=== PATIENT | male | born 1965 | race Caucasian/White ===

== ENCOUNTER → 2018-04-29 | Outpatient (CLI) | payer BC | END | disposition home or self-care (01) | LOC: RADMRIMAIN 06:04 | PROVIDERS: ATTEND Orthopaedic Surgery | DX: Z53.9 Procedure and treatment not carried out, unspecified reason (principal) ==

== ENCOUNTER 2020-04-12 03:40 | Emergency (ER) | payer BC ==
[2020-04-12 03:49] VITALS: TEMP 97.7
[2020-04-12] MEDS ORDERED: ONDANSETRON 4 MG/2 ML VIAL IVP STA (04:02)
[2020-04-12] MEDS ORDERED: MORPHINE SULFATE 4 MG/ML SYRINGE IV STA (04:02)
[2020-04-12] MEDS ORDERED: SODIUM CHLORIDE 0.9% 1,000 ML IV STA (04:02)
--- NOTE | 2020-04-12 04:12 | ED ---
Abdominal Pain HPI - General Chief Complaint: Abdominal Pain Stated Complaint: Abd pain Time Seen by Provider: 04/12/20 04:01 Source: patient Limitations: no limitations - History of Present Illness Initial Comments: Needs a 55-year-old male presents the ER today for evaluation of right upper quadrant abdominal pain. Patient reports he was in his usual state of health throughout the day yesterday he woke around midnight with right upper quadrant abdominal pain. He was hoping the pain would subside however persisted throughout the morning prevent him from sleeping which prompted him to ask his to bring him hospital for further evaluation. Patient reports in route to the hospital he became nauseated and had some dry heaving but no vomiting. He reports normal bowel movement yesterday. No change in bowel or bladder habits. No hematuria no history of kidney stones. No known gallbladder pathology. - Related Data Allergies Allergy/AdvReac Type Severity Reaction Status Date / Time No Known Allergies Allergy Verified 04/12/20 03:48 Review of Systems ROS Statement: Those systems with pertinent positive or pertinent negative responses have been documented in the HPI. ROS Other: All systems not noted in ROS Statement are negative. Past Medical History Past Medical History: Diabetes Mellitus, Hypertension, Myocardial Infarction ([place]) History of Any Multi-Drug Resistant Organisms: None Reported Past Surgical History: Coronary Bypass/CABG, Heart Catheterization With Stent, Tonsillectomy Additional Past Surgical History / Comment(s): triple bipass 2018, stents 2007 Past Psychological History: No Psychological Hx Reported Smoking Status: Never smoker Past Alcohol Use History: Occasional Past Drug Use History: None Reported General Exam - General Exam Comments Initial Comments: Physical Exam GENERAL: Patient is well-developed and well-nourished. Patient is nontoxic and well-hydrated and is in no distress. HENT: Normocephalic, Atraumatic. EYES: PERRL, EOMI PULMONARY: Unlabored respirations. CARDIOVASCULAR: RRR Warm and well perfused extremities ABDOMEN: Soft, non-peritoneal Mild tenderness to deep palpation in the right upper quadrant No flank tenderness SKIN: No rashes or bruising : Deferred NEUROLOGIC: Alert and oriented Normal speech Normal gait MUSCULOSKELETAL: Moving all extremities with no apparent injury PSYCHIATRIC: No SI/HI Limitations: no limitations Course Vital Signs 04/12/20 04/12/20 03:45 04:33 Temperature 97.7 F Pulse Rate 77 75 Respiratory 18 18 Rate Blood Pressure 165/95 149/96 O2 Sat by Pulse 99 98 Oximetry Medical Decision Making - Medical Decision Making Patient was seen and evaluated history is obtained from the patient and at bedside 55-year-old obese male with right upper quadrant tenderness nausea no vomiting Labs and imaging were obtained Labs are unremarkable there's no leukocytosis is no transaminitis no elevated bilirubin KUB x-ray no acute findings Results were discussed with the patient who reports complete resolution of his symptoms that is resting comfortably after single dose of morphine. I advised the patient the possibility of Kelvin call it, recommended dietary modifications. At this time patient's comfortable to plan for discharge home and outpatient follow-up with primary care or surgeon. - Lab Data Result diagrams: 04/12/20 04:09 04/12/20 04:09 Lab Results 04/12/20 04/12/20 04/12/20 Range/Units 04:09 04:09 04:31 WBC 10.5 (3.8-10.6) k/uL RBC 6.09 H (4.30-5.90) m/uL Hgb 17.3 (13.0-17.5) gm/dL Hct 53.0 (39.0-53.0) % MCV 87.0 (80.0-100.0) fL MCH 28.4 (25.0-35.0) pg MCHC 32.6 (31.0-37.0) g/dL RDW 14.3 (11.5-15.5) % Plt Count 249 (150-450) k/uL Neutrophils % Not Reportable Neutrophils % (Manual) 36 % Lymphocytes % Not Reportable Lymphocytes % (Manual) 45 % Monocytes % Not Reportable Monocytes % (Manual) 17 % Eosinophils % Not Reportable Eosinophils % (Manual) 2 % Basophils % Not Reportable Neutrophils # Not Reportable Neutrophils # (Manual) 3.78 (1.3-7.7) k/uL Lymphocytes # Not Reportable Lymphocytes # (Manual) 4.73 (1.0-4.8) k/uL Monocytes # Not Reportable Monocytes # (Manual) 1.79 H (0-1.0) k/uL Eosinophils # Not Reportable Eosinophils # (Manual) 0.21 (0-0.7) k/uL Basophils # Not Reportable Nucleated RBCs 0 (0-0) /100 WBC Manual Slide Review Performed Sodium 137 (137-145) mmol/L Potassium 4.1 (3.5-5.1) mmol/L Chloride 101 (98-107) mmol/L Carbon Dioxide 23 (22-30) mmol/L Anion Gap 13 mmol/L BUN 14 (9-20) mg/dL Creatinine 0.90 (0.66-1.25) mg/dL Est GFR (CKD-EPI)AfAm >90 (>60 ml/min/1.73 sqM) Est GFR (CKD-EPI)NonAf >90 (>60 ml/min/1.73 sqM) Glucose 149 H (74-99) mg/dL Calcium 9.5 (8.4-10.2) mg/dL Total Bilirubin 1.2 (0.2-1.3) mg/dL AST 29 (17-59) U/L ALT 25 (4-49) U/L Alkaline Phosphatase 97 (38-126) U/L Total Protein 7.6 (6.3-8.2) g/dL Albumin 4.8 (3.5-5.0) g/dL Lipase 179 (23-300) U/L Urine Color Yellow Urine Appearance Clear (Clear) Urine pH 5.5 (5.0-8.0) Ur Specific Linwood 1.032 (1.001-1.035) Urine Protein Negative (Negative) Urine Glucose (UA) 4+ H (Negative) Urine Ketones Negative (Negative) Urine Blood Negative (Negative) Urine Nitrite Negative (Negative) Urine Bilirubin Negative (Negative) Urine Urobilinogen <2.0 (<2.0) mg/dL Ur Leukocyte Esterase Negative (Negative) - EKG Data -: EKG Interpreted by In EKG shows normal: sinus rhythm EKG Comments: EKG was obtained due to patient's age and right-sided abdominal pain, EKG was obtained at 3:54 AM, rate is 68 rhythm is sinus tach normal axis, normal intervals, [place] 156, QRS 90, QTc is 448 there are no acute ST elevations or depressions no evidence of acute ischemia or infarction Disposition Clinical Impression: Biliary colic Disposition: HOME SELF-CARE Condition: Stable Instructions (If sedation given, give patient instructions): Biliary Colic (ED) Is patient prescribed a controlled substance at d/c from ED?: No Referrals: Lianne Sterling III, MD [Primary Care Provider] - 1-2 days Sierra Morales MD [STAFF PHYSICIAN] - 1-2 days
[2020-04-12 04:19] LABS: HGB 17.3 gm/dL (13.0-17.5); MCH 28.4 pg (25.0-35.0); MCHC 32.6 g/dL (31.0-37.0); Mean Platelet Volume 7.4; Platelet Count 249 k/uL (150-450); RBC 6.09 m/uL (4.30-5.90); RDW 14.3 % (11.5-15.5); WBC 10.5 k/uL (3.8-10.6)
[2020-04-12 04:33] LABS: ALT 25 U/L (4-49); AST 29 U/L (17-59); African American GFR (CKD) >90 (>60 ml/min/1.73 sqM); Albumin 4.8 g/dL (3.5-5.0); Alkaline Phosphatase 97 U/L (38-126); Anion Gap 13 mmol/L; Blood Urea Nitrogen 14 mg/dL (9-20); Calcium 9.5 mg/dL (8.4-10.2); Carbon Dioxide 23 mmol/L (22-30); Chloride 101 mmol/L (98-107); Glucose 149 mg/dL (74-99); Lipase 179 U/L (23-300); Non-African American GFR(CKD) >90 (>60 ml/min/1.73 sqM); Potassium 4.1 mmol/L (3.5-5.1); Sodium 137 mmol/L (137-145); Total Bilirubin 1.2 mg/dL (0.2-1.3); Total Protein 7.6 g/dL (6.3-8.2)
[2020-04-12 04:41] LABS: Appearance,Urine Clear (Clear); Bilirubin,Urine Negative (Negative); Blood,Urine Negative (Negative); Color,Urine Yellow; Glucose,Urine (UA) 4+ (Negative); Ketones,Urine Negative (Negative); Leukocyte Esterase,Urine Negative (Negative); Nitrite,Urine Negative (Negative); PH, Urine 5.5 (5.0-8.0); Protein,Urine Negative (Negative); Specific Gravity,Urine 1.032 (1.001-1.035); Urobilinogen,Urine <2.0 mg/dL (<2.0)
[2020-04-12 04:45] LABS: Eosinophils # (M) 0.21 k/uL (0-0.7); Lymphocytes # (M) 4.73 k/uL (1.0-4.8); Monocytes # (M) 1.79 k/uL (0-1.0); Neutrophils # (M) 3.78 k/uL (1.3-7.7); Neutrophils % (M) 36 %; Nucleated Red Blood Cells 0 /100 WBC (0-0); Total Cells Counted 100
--- NOTE | 2020-04-12 05:09 | XR ---
EXAMINATION TYPE: XR KUB DATE OF EXAM: 04/12/2020 COMPARISON: NONE HISTORY: Abdominal pain TECHNIQUE: 2 views FINDINGS: 2 upright views were obtained. Bowel gas pattern is normal. There is no sign of intestinal obstruction or pneumoperitoneum. Fecal pattern is normal. There are chest leads. There are no patholo gic calcifications over the kidneys. Lung bases are clear. There is no evidence of a mass. IMPRESSION: Nonacute abdomen.
[2020-04-12 06:40] VITALS: BP 118/68; PULSE 74; RESP 17
== END 2020-04-12 06:39 | disposition home or self-care (01) ==
LOC: EC 03:40
DX: K80.50 Calculus of bile duct without cholangitis or cholecystitis without obstruction (principal); R10.11 Right upper quadrant pain; I25.2 Old myocardial infarction; Z95.1 Presence of aortocoronary bypass graft; Z95.5 Presence of coronary angioplasty implant and graft
CPT/HCPCS: 36415; 80053; 83690; 85025; 81003; 74018; 99284; 96374; 96375; 96361 ×2; J2270; J2405

== ENCOUNTER 2020-05-24 03:47 | Emergency (ER) | payer BC ==
[2020-05-24 03:54] VITALS: TEMP 97.4
[2020-05-24] MEDS ORDERED: KETOROLAC 15 MG/ML 1 ML VIAL IVP STA (04:01)
[2020-05-24] MEDS ORDERED: SODIUM CHLORIDE 0.9% 1,000 ML IV STA ×2 (04:01)
[2020-05-24] MEDS ORDERED: MORPHINE SULFATE 4 MG/ML SYRINGE IV STA (04:01)
--- NOTE | 2020-05-24 04:04 | ED ---
Abdominal Pain HPI - General Chief Complaint: Abdominal Pain Stated Complaint: abd pain Time Seen by Provider: 05/24/20 03:50 Source: patient, family, RN notes reviewed, old records reviewed Mode of arrival: ambulatory Limitations: no limitations - History of Present Illness Initial Comments: This is a 55-year-old male DF for evaluation patient with his history of gallbladder has a pending gallbladder issue. Patient is scheduled for ultrasound today. He states pain woke him up from sleep he has mild nausea no vomiting. His been persistent since started. No fevers no cough or congestion no diarrhea. No for similar complaints. Patient has some gallbladder issues going on a month month and a half MD Complaint: abdominal pain, other (RUQ abd pain) -: week(s) Location: RUQ Radiation: RUQ Migration to: no migration Severity: moderate Severity scale (1-10): 6 Quality: stabbing Consistency: intermittent Improves With: nothing Worsens With: eating Associated Symptoms: nausea - Related Data Allergies Allergy/AdvReac Type Severity Reaction Status Date / Time No Known Allergies Allergy Verified 05/24/20 03:55 Review of Systems ROS Statement: Those systems with pertinent positive or pertinent negative responses have been documented in the HPI. ROS Other: All systems not noted in ROS Statement are negative. Past Medical History Past Medical History: Diabetes Mellitus, Hypertension, Myocardial Infarction ([place]) Additional Past Medical History / Comment(s): gallstones History of Any Multi-Drug Resistant Organisms: None Reported Past Surgical History: Coronary Bypass/CABG, Heart Catheterization With Stent, Tonsillectomy Additional Past Surgical History / Comment(s): triple bipass 2018, stents 2007 Past Psychological History: No Psychological Hx Reported Smoking Status: Never smoker Past Alcohol Use History: Occasional Past Drug Use History: None Reported General Exam Limitations: no limitations General appearance: alert, in no apparent distress Head exam: Present: atraumatic, normocephalic, normal inspection Eye exam: Present: normal appearance, PERRL, EOMI. Absent: scleral icterus, conjunctival injection, periorbital swelling ENT exam: Present: normal exam, mucous membranes moist Neck exam: Present: normal inspection. Absent: tenderness, meningismus, lymphadenopathy Respiratory exam: Present: normal lung sounds bilaterally. Absent: respiratory distress, wheezes, rales, rhonchi, stridor Cardiovascular Exam: Present: regular rate, normal rhythm, normal heart sounds. Absent: systolic murmur, diastolic murmur, rubs, gallop, clicks GI/Abdominal exam: Present: soft, normal bowel sounds. Absent: distended, tenderness, guarding, rebound, rigid Extremities exam: Present: normal inspection, full ROM, normal capillary refill. Absent: tenderness, pedal edema, joint swelling, calf tenderness Back exam: Present: normal inspection Neurological exam: Present: alert, oriented X3, CN II-XII intact Psychiatric exam: Present: normal affect, normal mood Skin exam: Present: warm, dry, intact, normal color. Absent: rash Course Vital Signs 05/24/20 05/24/20 03:49 04:35 Temperature 97.4 F L 97.4 F L Pulse Rate 67 62 Respiratory 20 18 Rate Blood Pressure 175/92 166/100 O2 Sat by Pulse 100 99 Oximetry - Reevaluation(s) Reevaluation #1: 05/24/20 04:04 medical record is reviewed Reevaluation #2: 05/24/20 05:58 Patient states she has no pain now follow-up with results here in the ER, questions answered will keep outpatient APPOINTMENT Medical Decision Making - Medical Decision Making 55 female DEL with abdominal pain right upper quadrant likely pericolic, has ultrasound was afternoon will follow-up with primary care's pain is currently controlled, 0 currently - Lab Data Result diagrams: 05/24/20 04:14 05/24/20 04:14 Lab Results 05/24/20 05/24/20 05/24/20 Range/Units 04:14 04:14 04:14 WBC 11.0 H (3.8-10.6) k/uL RBC 6.09 H (4.30-5.90) m/uL Hgb 17.8 H (13.0-17.5) gm/dL Hct 53.1 H (39.0-53.0) % MCV 87.2 (80.0-100.0) fL MCH 29.2 (25.0-35.0) pg MCHC 33.5 (31.0-37.0) g/dL RDW 13.6 (11.5-15.5) % Plt Count 227 (150-450) k/uL Neutrophils % 66 % Lymphocytes % 25 % Monocytes % 6 % Eosinophils % 2 % Basophils % 1 % Neutrophils # 7.2 (1.3-7.7) k/uL Lymphocytes # 2.7 (1.0-4.8) k/uL Monocytes # 0.6 (0-1.0) k/uL Eosinophils # 0.2 (0-0.7) k/uL Basophils # 0.1 (0-0.2) k/uL Sodium 136 L (137-145) mmol/L Potassium 5.0 (3.5-5.1) mmol/L Chloride 104 (98-107) mmol/L Carbon Dioxide 22 (22-30) mmol/L Anion Gap 10 mmol/L BUN 13 (9-20) mg/dL Creatinine 0.83 (0.66-1.25) mg/dL Est GFR (CKD-EPI)AfAm >90 (>60 ml/min/1.73 sqM) Est GFR (CKD-EPI)NonAf >90 (>60 ml/min/1.73 sqM) Glucose 145 H (74-99) mg/dL POC Glucose (mg/dL) (75-99) mg/dL POC Glu Visiting Teacher ID Plasma Lactic Acid Preston 1.9 (0.7-2.0) mmol/L Calcium 9.1 (8.4-10.2) mg/dL Phosphorus 4.3 (2.5-4.5) mg/dL Magnesium 2.0 (1.6-2.3) mg/dL Total Bilirubin 1.7 H (0.2-1.3) mg/dL AST 38 (17-59) U/L ALT 24 (4-49) U/L Alkaline Phosphatase 85 (38-126) U/L Total Protein 7.5 (6.3-8.2) g/dL Albumin 4.7 (3.5-5.0) g/dL Amylase 54 (30-110) U/L Lipase 152 (23-300) U/L 05/24/20 Range/Units 04:17 WBC (3.8-10.6) k/uL RBC (4.30-5.90) m/uL Hgb (13.0-17.5) gm/dL Hct (39.0-53.0) % MCV (80.0-100.0) fL MCH (25.0-35.0) pg MCHC (31.0-37.0) g/dL RDW (11.5-15.5) % Plt Count (150-450) k/uL Neutrophils % % Lymphocytes % % Monocytes % % Eosinophils % % Basophils % % Neutrophils # (1.3-7.7) k/uL Lymphocytes # (1.0-4.8) k/uL Monocytes # (0-1.0) k/uL Eosinophils # (0-0.7) k/uL Basophils # (0-0.2) k/uL Sodium (137-145) mmol/L Potassium (3.5-5.1) mmol/L Chloride (98-107) mmol/L Carbon Dioxide (22-30) mmol/L Anion Gap mmol/L BUN (9-20) mg/dL Creatinine (0.66-1.25) mg/dL Est GFR (CKD-EPI)AfAm (>60 ml/min/1.73 sqM) Est GFR (CKD-EPI)NonAf (>60 ml/min/1.73 sqM) Glucose (74-99) mg/dL POC Glucose (mg/dL) 156 H (75-99) mg/dL POC Glu Visiting Teacher ID Torin James Plasma Lactic Acid Preston (0.7-2.0) mmol/L Calcium (8.4-10.2) mg/dL Phosphorus (2.5-4.5) mg/dL Magnesium (1.6-2.3) mg/dL Total Bilirubin (0.2-1.3) mg/dL AST (17-59) U/L ALT (4-49) U/L Alkaline Phosphatase (38-126) U/L Total Protein (6.3-8.2) g/dL Albumin (3.5-5.0) g/dL Amylase (30-110) U/L Lipase (23-300) U/L Disposition Clinical Impression: Abdominal pain Disposition: HOME SELF-CARE Condition: Good Is patient prescribed a controlled substance at d/c from ED?: No Referrals: Lianne Sterling III, MD [Primary Care Provider] - 1-2 days
[2020-05-24 04:22] LABS: Glucose,Whole Blood 156 mg/dL (75-99)
[2020-05-24 04:26] LABS: Basophils # (A) 0.1 k/uL (0-0.2); Basophils % (A) 1 %; Eosinophils # (A) 0.2 k/uL (0-0.7); Eosinophils % (A) 2 %; HCT 53.1 % (39.0-53.0); HGB 17.8 gm/dL (13.0-17.5); Lymphocytes # (A) 2.7 k/uL (1.0-4.8); Lymphocytes % (A) 25 %; MCH 29.2 pg (25.0-35.0); MCHC 33.5 g/dL (31.0-37.0); MCV 87.2 fL (80.0-100.0); Mean Platelet Volume 7.7; Monocytes # (A) 0.6 k/uL (0-1.0); Monocytes % (A) 6 %; Neutrophils # (A) 7.2 k/uL (1.3-7.7); Neutrophils % (A) 66 %; Platelet Count 227 k/uL (150-450); RBC 6.09 m/uL (4.30-5.90); RDW 13.6 % (11.5-15.5)
[2020-05-24 04:42] LABS: ALT 24 U/L (4-49); AST 38 U/L (17-59); African American GFR (CKD) >90 (>60 ml/min/1.73 sqM); Albumin 4.7 g/dL (3.5-5.0); Alkaline Phosphatase 85 U/L (38-126); Amylase 54 U/L (30-110); Anion Gap 10 mmol/L; Blood Urea Nitrogen 13 mg/dL (9-20); Calcium 9.1 mg/dL (8.4-10.2); Carbon Dioxide 22 mmol/L (22-30); Chloride 104 mmol/L (98-107); Glucose 145 mg/dL (74-99); Non-African American GFR(CKD) >90 (>60 ml/min/1.73 sqM); Phosphorus 4.3 mg/dL (2.5-4.5); Sodium 136 mmol/L (137-145); Total Bilirubin 1.7 mg/dL (0.2-1.3); Total Protein 7.5 g/dL (6.3-8.2)
[2020-05-24] MEDS ORDERED: ONDANSETRON 4 MG ODT STARTER PACK 2 TAB BTL PO STA (05:59)
[2020-05-24] MEDS ORDERED: traMADol 50 MG STARTER PACK 3 TAB BTL PO STA (05:59)
[2020-05-24] MEDS ORDERED: IBUPROFEN 600 MG STARTER PACK 4 TAB BTL PO STA (05:59)
[2020-05-24 06:27] VITALS: BP 122/82; PULSE 61; RESP 16
== END 2020-05-24 06:15 | disposition home or self-care (01) ==
LOC: EC 03:47
DX: R10.11 Right upper quadrant pain (principal); R11.0 Nausea; I25.2 Old myocardial infarction; Z95.1 Presence of aortocoronary bypass graft; Z95.5 Presence of coronary angioplasty implant and graft
CPT/HCPCS: 36415; 80053; 82150; 83605; 83690; 83735; 84100; 85025; 99284; 96374; 96375; 96361 ×2; J2270; J1885; S0119

== ENCOUNTER → 2020-05-24 | Outpatient (CLI) | payer BC ==
--- NOTE | 2020-05-24 08:32 | US ---
EXAMINATION TYPE: US abdomen complete DATE OF EXAM: 05/24/2020 COMPARISON: NONE CLINICAL HISTORY: 55-year-old male R10.11 RUQ ABD PAIN. TECHNIQUE: Multiple sonographic images of the abdomen are obtained. FINDINGS: Global Clinical Leader notes: Difficult and limited exam due to overlying bowel gas EXAM MEASUREMENTS: Liver Length: 16.2 cm Gallbladder Wall: 0.4 cm CBD: 0.7 cm Spleen: 11.9 cm Right Kidney: 10.3 x 5.3 x 6.0 cm Left Kidney: 10.8 x 5.4 x 4.6 cm Pancreas: Obscured by bowel gas Liver: Hypoechoic area visualized posteriorly measuring 3.7 x 3.5 x 3.4 cm Gallbladder: Stones visualized measuring 1.7 cm. Wall is thickened. Unable to exclude irregular mura l based nodularity. Evidence for sonographic Tolentino's sign: Yes CBD: Appears dilated, however visualization is severely limited due to overlying bowel gas Spleen: wnl Kidneys: No hydronephrosis. Upper IVC: obscured by bowel gas Abd Aorta: Obscured by overlying bowel gas IMPRESSION: 1. Further contrast-enhanced CT is recommended to assess for any potential 3.7 cm posterior hepatic m ass. 2. Unable to exclude irregular mural based nodularity of the gallbladder. Underlying calculi measurin g up to 1.7 cm also suggested. Given wall thickening and positive sonographic Tolentino sign, clinically correlate for acute cholecystitis. Consider initial CT evaluation. 3. Limited visualization of the bile duct suggests mild dilatation up to 7 mm. Correlate with alkalin e phosphatase and bilirubin levels to exclude early biliary obstruction.
== END | disposition home or self-care (01) ==
LOC: RADUSWWP 06:54
PROVIDERS: ATTEND Family Medicine
DX: K80.20 Calculus of gallbladder without cholecystitis without obstruction (principal); K76.89 Other specified diseases of liver; K82.8 Other specified diseases of gallbladder; K83.8 Other specified diseases of biliary tract
CPT/HCPCS: 76700

== ENCOUNTER → 2020-06-06 | Outpatient (CLI) | payer BC ==
[2020-06-06 15:56] LABS: African American GFR (CKD) >90 (>60 ml/min/1.73 sqM); Blood Urea Nitrogen 17 mg/dL (9-20); Non-African American GFR(CKD) 89 (>60 ml/min/1.73 sqM)
--- NOTE | 2020-06-06 17:01 | CT ---
EXAMINATION TYPE: CT abdomen w con DATE OF EXAM: 06/06/2020 COMPARISON: Ultrasound abdomen May 24, 2020. HISTORY: Abnormal findings on diagnostic imaging. Gallbladder issues. Right upper quadrant pain. Abno rmal recent ultrasound. CT DLP: 1253 mGycm, Automated Exposure Control for Dose Reduction was Utilized. CONTRAST: CT scan of the abdomen is performed with oral and with IV Contrast, patient injected with 100 mL of I sovue 300. FINDINGS: LUNG BASES: Partial visualization of sternal wires from CABG procedure, significant viejas coronary a rtery calcification is noted. LIVER/GB: Liver is low dense relative to spleen consistent with mild diffuse fatty infiltration. Calc ification dependently in the gallbladder consistent with large stone and several adjacent smaller mallorie cified gallstones. No biliary dilatation noted. No surrounding inflammatory change. No suspicious wal l thickening on CT. PANCREAS: Pancreas appears within normal limits noted not well seen on ultrasound. SPLEEN: Mild splenomegaly of 14.0 cm axial image 35 more prominent than suspected on recent ultrasoun d. ADRENALS: No significant abnormality is seen. KIDNEYS: Symmetric cortical injury uptake and excretion without hydronephrosis seen bilaterally. BOWEL: Oral contrast does not reach level of terminal ileum makes evaluation of distal bowel slightly suboptimal. No suspicious small or large bowel dilatation. LYMPH NODES: No greater than 1cm abdominal lymph nodes are appreciated. OSSEOUS STRUCTURES: Some mild to moderate multilevel spurring in the visualized thoracolumbar spine. Mild facet arthropathy lower lumbar levels. OTHER: No significant additional abnormality is seen. IMPRESSION: 1. Diffuse fatty infiltration of liver redemonstrated. No concerning solid or cystic intrahepatic mas s on CT. Ultrasound finding favors focal fatty sparing. Ultrasound not sensitive to assess for focal masses on background fatty infiltration. 2. Dependent calcified larger gallstone and/or smaller stones without secondary CT evidence for acute cholecystitis. No suspicious biliary dilatation noted.
== END | disposition home or self-care (01) ==
LOC: RADCTMAIN 15:19
PROVIDERS: ATTEND Family Medicine
DX: K76.0 Fatty (change of) liver, not elsewhere classified (principal)
CPT/HCPCS: 82565; 84520; 74160; 36415; Q9967

== ENCOUNTER 2020-06-15 07:09 | Inpatient (IN) | payer BC ==
[2020-06-12 16:20] VITALS: BMI 31.9
[~2020-06-15 07:09] MED LIST: ACETAMINOPHEN TAB 500 MG TAB PO ONE; DEXAMETHASONE SOD PHOSPHATE 10 MG/ML 1 ML VIAL IV ONE; HEPARIN SODIUM,PORCINE 5,000 UNIT/ML 1 ML VIAL SQ ONE; MIDAZOLAM 2 MG/2 ML VIAL IV PRN; ONDANSETRON 4 MG/2 ML VIAL IVP ONE; SCOPOLAMINE 1.5MG/72HR PATCH TRANSDERM ONE
[2020-06-15 07:57] LABS: Glucose,Whole Blood 137 mg/dL (75-99)
[2020-06-15] MEDS ORDERED: LIDOCAINE 1% (10MG/ML) FOR IV START INTRADERMA ONE (08:00)
[2020-06-15] MEDS: LACTATED RINGERS 1,000 ML IV SCH (08:01)
--- NOTE | 2020-06-15 08:16 | P.GSHP ---
History of Present Illness H&P Date: 06/15/20 Chief Complaint: Right upper quadrant pain This a 55-year-old male who presented to the emergency room with complaint of right upper quadrant pain. Patient had a recent ultrasound showed evidence of cholelithiasis. He presents today for laparoscopic cholecystectomy. Past Medical History Past Medical History: Diabetes Mellitus, GERD/Reflux, Hyperlipidemia, Hypertension, Myocardial Infarction ([place]) Additional Past Medical History / Comment(s): gallstones Last Myocardial Infarction Date:: 2017 History of Any Multi-Drug Resistant Organisms: None Reported Past Surgical History: Adenoidectomy, Coronary Bypass/CABG, Heart Catheterization With Stent, Tonsillectomy Additional Past Surgical History / Comment(s): triple bipass 2018, stents 2006, 2011 Past Anesthesia/Blood Transfusion Reactions: No Reported Reaction Date of Last Stent Placement:: 2011 Smoking Status: Never smoker - Past Family History Father Family Medical History: Cancer Medications and Allergies Home Medications Medication Instructions Recorded Confirmed Type Aspirin EC [Ecotrin Low Dose] 81 mg PO DAILY 06/13/20 06/13/20 History Atorvastatin [Lipitor] 40 mg PO DAILY 06/13/20 06/13/20 History Empagliflozin [Jardiance] 25 mg PO DAILY 06/13/20 06/13/20 History Famotidine [Pepcid] 20 mg PO DAILY 06/13/20 06/13/20 History Krill Oil 500 mg PO DAILY 06/13/20 06/13/20 History Metoprolol Tartrate [Lopressor] 50 mg PO TID 06/13/20 06/13/20 History Tadalafil [Cialis] 10 mg PO DAILY PRN 06/13/20 06/13/20 History diphenhydrAMINE [Benadryl] 50 mg PO DAILY PRN 06/13/20 06/13/20 History lisinopriL [Zestril] 5 mg PO DAILY 06/13/20 06/13/20 History metFORMIN HCL [Glucophage Xr] 500 mg PO BID 06/13/20 06/13/20 History Allergies Allergy/AdvReac Type Severity Reaction Status Date / Time No Known Allergies Allergy Verified 06/15/20 07:23 Surgical - Exam Vital Signs Temp Pulse Resp BP Pulse Ox 96.6 F L 63 16 131/84 99 06/15/20 07:29 06/15/20 07:29 06/15/20 07:29 06/15/20 07:29 06/15/20 07:29 - General well developed, well nourished, no distress - Eyes PERRL - ENT normal pinna - Neck no masses - Respiratory normal expansion - Cardiovascular Rhythm: regular - Abdomen Abdomen: soft, non tender Results - Labs Abnormal Lab Results - Last 24 Hours (Table) 06/15/20 Range/Units 07:55 POC Glucose (mg/dL) 137 H (75-99) mg/dL Assessment and Plan Assessment: Right upper quadrant pain Cholelithiasis We'll perform laparoscopic cholecystectomy
[2020-06-15] MEDS ORDERED: PHENYLEPHRINE-0.9% NACL SYG 1 MG/10 ML SYRINGE ONE (08:26)
[2020-06-15] MEDS ORDERED: GLYCOPYRROLATE 0.2 MG/ML 2 ML VIAL ONE (08:26)
[2020-06-15] MEDS ORDERED: ROCURONIUM BROMIDE 10 MG/ML 5 ML VIAL IV ONE (08:26)
[2020-06-15] MEDS ORDERED: fentaNYL (PF) 50 MCG/ML 2 ML AMP ONE (08:26)
[2020-06-15] MEDS ORDERED: MIDAZOLAM 2 MG/2 ML VIAL ONE (08:26)
[2020-06-15] MEDS ORDERED: LIDOCAINE 1% INJ 10MG/ML (20 ML MDV) ONE (08:26)
[2020-06-15] MEDS ORDERED: PROPOFOL 10 MG/ML 20 ML VIAL IV ONE (08:26)
[2020-06-15] MEDS ORDERED: NEOSTIGMINE 1 MG/ML 10 ML VIAL ONE (08:26)
[2020-06-15] MEDS ORDERED: SUCCINYLCHOLINE CHLORIDE VIAL 200 MG/10 ML VIAL IV ONE (08:26)
[2020-06-15] MEDS ORDERED: BUPIVACAINE (PF) 0.5% 30 ML VIAL SQ ONE (08:52)
[2020-06-15] MEDS ORDERED: LACTATED RINGERS 1,000 ML IV ONE ×2 (09:46→09:57)
[2020-06-15] MEDS ORDERED: ONDANSETRON 4 MG/2 ML VIAL IVP PRN (09:57)
[2020-06-15] MEDS ORDERED: HYDROmorphone 1 MG/ML 1 ML SYRINGE IVP PRN (09:57)
[2020-06-15] MEDS ORDERED: METOCLOPRAMIDE 5 MG/ML 2 ML VIAL IVP PRN (09:57)
[2020-06-15] MEDS ORDERED: NALOXONE 0.4 MG/ML 1 ML VIAL IV PRN (09:57)
[2020-06-15] MEDS ORDERED: traMADol 50 MG TAB PO PRN (09:57)
--- NOTE | 2020-06-15 09:57 | P.OP ---
Date of Procedure: 06/15/20 Preoperative Diagnosis: Cholecystitis Postoperative Diagnosis: Cholestasis Cholelithiasis Procedure(s) Performed: Diagnostic laparoscopy Open cholecystectomy Anesthesia: KEN Surgeon: Jerrell Medrano Estimated Blood Loss (ml): 150 Pathology: other (Gallbladder) Condition: stable Disposition: PACU Description of Procedure: The patient was placed on the operating table. The patient received a general endotracheal tube anesthesia. The patients abdomen was prepped and draped in the usual sterile fashion. Through an infraumbilical stab incision, the fascia of the anterior abdominal wall was grasped with a pair of Kochers and then the Veress needle was placed in the peritoneal cavity. Position of the Veress needle was confirmed with positive drop test. The abdomen was then insufflated. After adequate insufflation, the 10 mm trocar was placed in the peritoneal cavity. Following this the laparoscope was placed in the peritoneal cavity. The patient was placed in the head-up, right side up position and then a 5 mm trocar was placed in the right lateral and right subcostal position under direct visualization. A 8 mm trocar was placed in the epigastric position. The gallbladder was grasped in the fundus and infundibulum. The gallbladder was visualized. The gallbladder was partially intrahepatic appeared to be very inflamed. The gallbladder infundibulum cannot be visualized due to inflammation. At this point the gallbladder was taken down in a dome down technique. The infundibulum of the gallbladder was grasped and then gentle traction was placed the liver and then the plane between the gallbladder liver was dissected using Harmonic scissors. There was significant inflammation along the gallbladder wall. At this point decided to convert the procedure to open procedure. The trochars withdrawn. A right subcostal incision was made and then using cautery the abdominal wall was divided. The Bookwalter retractors placed a wound. And then the liver and gallbladder was exposed. There was significant plantar changes at the infundibulum the gallbladder. The gallbladder was then further dissected along the liver bed. The area of the cystic duct was very inflamed. It was decided to divide the gallbladder at the neck of the gallbladder. To avoid risk of injury to the cystic cystic duct and common bile duct. The cystic artery is visualized this was clipped and divided with months scissors. The neck of the gallbladder was then ligated with a right angle retractor. And then using months scissors the neck of the gallbladder was cut in the gallbladder sent to pathology. The neck of the gallbladder was then tied with 0 silk ties. 2 ties were used to ligate the neck and cystic duct the gallbladder. The abdomen was irrigated there is was some bleeding from the liver bed and this was controlled with electrocautery and Surgicel. A drain was placed into the gallbladder fossa and brought out through a 5 mm trocar site. The fascia was closed with looped #1 PDS suture. Skin was closed christina. Patient top she will was sent to recovery room stable condition.
[2020-06-15] MEDS: HYDROmorphone 0.5 MG/0.5 ML SYRINGE IVP PRN ×6 (10:03→13:39)
[2020-06-15 10:20] LABS: Glucose,Whole Blood 166 mg/dL (75-99)
[2020-06-15] MEDS: MEPERIDINE 50 MG/ML SYRINGE IVP ONE ×2 (10:47→12:10)
[2020-06-15 16:35] LABS: Glucose,Whole Blood 176 mg/dL (75-99)
[2020-06-15] MEDS: HYDROcodone/APAP 5-325MG 1 EACH TAB PO PRN ×2 (17:53→21:12)
--- NOTE | 2020-06-15 18:32 | P.CONS ---
History of Present Illness - Reason for Consult Consult date: 06/15/20 Medical management - Chief Complaint Right upper quadrant - History of Present Illness 55-year-old male with history of hypertension, hyperlipidemia, diabetes mellitus and [place] who presented to the emergency room with complaint of right upper quadrant pain. Patient had a recent ultrasound showed evidence of cholelithiasis. He presents today for laparoscopic cholecystectomy. Review of Systems REVIEW OF SYSTEMS: CONSTITUTIONAL: No fever, no malaise, no fatigue. HEENT: No recent visual problems or hearing problems. Denied any sore throat. CARDIOVASCULAR: No chest pain, orthopnea, PND, no palpitations, no syncope. PULMONARY: No shortness of breath, no cough, no hemoptysis. GASTROINTESTINAL: No diarrhea, no nausea, no vomiting, no abdominal pain. NEUROLOGICAL: No headaches, no weakness, no numbness. HEMATOLOGICAL: Denies any bleeding or petechiae. GENITOURINARY: Denies any burning micturition, frequency, or urgency. MUSCULOSKELETAL/RHEUMATOLOGICAL: Denies any joint pain, swelling, or any muscle pain. ENDOCRINE: Denies any polyuria or polydipsia. The rest of the 14-point review of systems is negative. Past Medical History Past Medical History: Diabetes Mellitus, GERD/Reflux, Hyperlipidemia, Hypertension, Myocardial Infarction ([place]) Additional Past Medical History / Comment(s): gallstones Last Myocardial Infarction Date:: 2017 History of Any Multi-Drug Resistant Organisms: None Reported Past Surgical History: Adenoidectomy, Coronary Bypass/CABG, Heart Catheterization With Stent, Tonsillectomy Additional Past Surgical History / Comment(s): triple bipass 2018, stents 2006, 2011 Past Anesthesia/Blood Transfusion Reactions: No Reported Reaction Date of Last Stent Placement:: 2011 Past Psychological History: No Psychological Hx Reported Smoking Status: Never smoker Past Alcohol Use History: Occasional Past Drug Use History: None Reported - Past Family History Father Family Medical History: Cancer Medications and Allergies Home Medications Medication Instructions Recorded Confirmed Type Aspirin EC [Ecotrin Low Dose] 81 mg PO DAILY 06/13/20 06/13/20 History Atorvastatin [Lipitor] 40 mg PO DAILY 06/13/20 06/13/20 History Empagliflozin [Jardiance] 25 mg PO DAILY 06/13/20 06/13/20 History Famotidine [Pepcid] 20 mg PO DAILY 06/13/20 06/13/20 History Krill Oil 500 mg PO DAILY 06/13/20 06/13/20 History Metoprolol Tartrate [Lopressor] 50 mg PO TID 06/13/20 06/13/20 History Tadalafil [Cialis] 10 mg PO DAILY PRN 06/13/20 06/13/20 History diphenhydrAMINE [Benadryl] 50 mg PO DAILY PRN 06/13/20 06/13/20 History lisinopriL [Zestril] 5 mg PO DAILY 06/13/20 06/13/20 History metFORMIN HCL [Glucophage Xr] 500 mg PO BID 06/13/20 06/13/20 History Allergies Allergy/AdvReac Type Severity Reaction Status Date / Time No Known Allergies Allergy Verified 06/15/20 07:23 Physical Exam Vitals: Vital Signs Temp Pulse Pulse Resp BP Pulse Ox 06/15/20 14:08 97.6 F 85 16 141/83 93 L 06/15/20 13:33 76 16 147/85 94 L 06/15/20 13:02 76 16 136/80 95 06/15/20 12:30 73 16 148/80 94 L 06/15/20 12:09 75 16 147/88 94 L 06/15/20 11:30 64 16 152/87 95 06/15/20 11:15 65 16 165/77 99 06/15/20 11:00 68 16 148/83 99 06/15/20 10:45 60 16 154/83 99 06/15/20 10:30 61 16 156/83 97 06/15/20 10:15 66 16 150/80 99 06/15/20 10:02 96.8 F L 65 16 156/81 98 06/15/20 07:29 96.6 F L 63 16 131/84 99 Intake and Output 06/15/20 06/15/20 06/15/20 06:59 14:59 22:59 Intake Total 1850 Output Total 200 Balance 1650 Intake: IV 1850 Output: Estimated Blood Loss 200 Other: Weight 94.1 kg 1. Cholelithiasis; at/P laparoscopic cholecystectomy 2. Hyperglycemia/diabetes mellitus; patient takes metformin and Giardia and s ent home; we will hold off on oral hypoglycemic agents and monitor Accu-Cheks every before meals and at bedtime with insulin sliding scale 3. Hypertension; we will restart on home dose of metoprolol 50 mg 3 times a day along with lisinopril 5 mg daily once oral intake is established 4. Hyperlipidemia; resume Lipitor 40 mg by mouth daily at bedtime DVT prophylaxis; subcu Lovenox CODE STATUS; full code Results Labs: Abnormal Lab Results - Last 24 Hours (Table) 06/15/20 06/15/20 Range/Units 07:55 10:18 POC Glucose (mg/dL) 137 H 166 H (75-99) mg/dL
[2020-06-15 20:50] LABS: Glucose,Whole Blood 192 mg/dL (75-99)
[2020-06-15] MEDS: METOPROLOL TARTRATE 50 MG TAB PO SCH (20:56)
[2020-06-16] MEDS: LACTATED RINGERS 1,000 ML IV SCH (05:38)
[2020-06-16] MEDS: HYDROcodone/APAP 5-325MG 1 EACH TAB PO PRN ×3 (06:23→15:45)
[2020-06-16 06:38] LABS: Basophils % (A) 0 %; Eosinophils % (A) 0 %; HCT 50.3 % (39.0-53.0); HGB 16.3 gm/dL (13.0-17.5); Lymphocytes # (A) 1.7 k/uL (1.0-4.8); Lymphocytes % (A) 9 %; MCH 28.4 pg (25.0-35.0); MCHC 32.4 g/dL (31.0-37.0); MCV 87.8 fL (80.0-100.0); Monocytes # (A) 1.5 k/uL (0-1.0); Monocytes % (A) 8 %; Neutrophils # (A) 15.5 k/uL (1.3-7.7); Neutrophils % (A) 82 %; Platelet Count 280 k/uL (150-450); RBC 5.73 m/uL (4.30-5.90)
[2020-06-16 07:13] LABS: Glucose,Whole Blood 148 mg/dL (75-99)
[2020-06-16] MEDS: INSULIN ASPART (NovoLOG) 100 UNIT/ML VIAL SQ SCH ×4 (08:28→20:31)
[2020-06-16] MEDS: METOPROLOL TARTRATE 50 MG TAB PO SCH ×3 (08:30→20:15)
[2020-06-16] MEDS: FAMOTIDINE 20 MG TAB PO SCH (08:30)
[2020-06-16] MEDS: ATORVASTATIN 40 MG TAB PO SCH (08:30)
[2020-06-16] MEDS: ENOXAPARIN 40 MG/0.4 ML SYRINGE SQ SCH (08:30)
[2020-06-16] MEDS: lisinopriL 5 MG TAB PO SCH (08:30)
[2020-06-16 09:53] LABS: African American GFR (CKD) 96.4 (60.0-200.0); Albumin 4.6 g/dL (3.80-4.90); Albumin/Globulin Ratio 2.42 (1.60-3.17); Anion Gap 11.2 mmol/L (4.00-12.00); Calcium 9.4 mg/dL (8.7-10.3); Carbon Dioxide 22.8 mmol/L (21.6-31.8); Globulin 1.9 g/dL (1.6-3.3); Non-African American GFR(CKD) 83.2 (60.0-200.0); Potassium 4.4 mmol/L (3.5-5.5); Total Bilirubin 2.1 mg/dL (0.2-1.2); Total Protein 6.5 g/dL (6.2-8.2)
[2020-06-16 11:19] LABS: Glucose,Whole Blood 133 mg/dL (75-99)
[2020-06-16 16:50] LABS: Glucose,Whole Blood 136 mg/dL (75-99)
--- NOTE | 2020-06-16 17:01 | P.PN ---
Subjective Progress Note Date: 06/16/20 He feels better today. His family is at bedside. He reports difficulty laying in bed as he had an open cholecystectomy. No reports of emesis. He is tolerating diet. ABDOMEN: NAIMA serous. Dressing intact PLAN: 1. Pain medications adjusted with toradol, tylenol scheduled 2. Antibiotics for acute cholecystitis and started on Zosyn 3. Monitor WBC 4. Continue NAIMA drain Objective - Vital Signs Vital signs: Vital Signs Temp 97.8 F 06/16/20 15:00 Pulse 84 06/16/20 15:00 Resp 18 06/16/20 15:00 BP 131/82 06/16/20 15:00 Pulse Ox 95 06/16/20 15:00 Intake & Output 06/15/20 06/16/20 06/16/20 18:59 06:59 18:59 Intake Total 1850 Output Total 220 100 410 Balance 1630 -100 -410 Weight 94.1 kg Intake: IV 1850 Output: Drainage 20 100 10 Right Upper Abdomen 20 100 10 Urine 400 Estimated Blood Loss 200 Other: Voiding Method Toilet Toilet Urinal Urinal # Voids 1 - Labs CBC & Chem 7: 06/16/20 06:15 06/16/20 06:15 Labs: Abnormal Lab Results - Last 24 Hours (Table) 06/15/20 06/16/20 06/16/20 Range/Units 20:48 06:15 06:15 WBC 19.0 H (3.8-10.6) k/uL Neutrophils # 15.5 H (1.3-7.7) k/uL Monocytes # 1.5 H (0-1.0) k/uL Glucose 141 H (70-110) mg/dL POC Glucose (mg/dL) 192 H (75-99) mg/dL Total Bilirubin 2.1 H (0.2-1.2) mg/dL AST 131 H (14-35) U/L ALT 163 H (10-49) U/L 06/16/20 06/16/20 06/16/20 Range/Units 07:03 11:17 16:38 WBC (3.8-10.6) k/uL Neutrophils # (1.3-7.7) k/uL Monocytes # (0-1.0) k/uL Glucose (70-110) mg/dL POC Glucose (mg/dL) 148 H 133 H 136 H (75-99) mg/dL Total Bilirubin (0.2-1.2) mg/dL AST (14-35) U/L ALT (10-49) U/L
[2020-06-16] MEDS: PIPERACILLIN-TAZOBACTAM 3.375 GM in SODIUM CHLORIDE 0.9% 100 ML IVPB SCH ×2 (17:29→23:54)
[2020-06-16] MEDS: KETOROLAC 15 MG/ML 1 ML VIAL IVP SCH ×2 (17:35→23:55)
--- NOTE | 2020-06-16 17:51 | P.PN ---
Subjective Progress Note Date: 06/16/20 55-year-old male with history of hypertension, hyperlipidemia, diabetes mellitus and [place] who presented to the emergency room with complaint of right upper quadrant pain. Patient had a recent ultrasound showed evidence of cholelithiasis. He presents today for laparoscopic cholecystectomy. Patient underwent open cholecystectomy; he is POD #1; reports no significant complaints; Labs are reviewed revealing a white blood count of 19,000; surgery is on board; recommend starting patient on IV Zosyn and continued monitoring of CBC Objective - Vital Signs Vital signs: Vital Signs Temp 98.2 F 06/16/20 07:00 Pulse 95 06/16/20 07:00 Resp 18 06/16/20 07:00 BP 123/76 06/16/20 07:00 Pulse Ox 93 L 06/16/20 07:00 Intake & Output 06/15/20 06/16/20 06/16/20 18:59 06:59 18:59 Intake Total 1850 Output Total 220 100 0 Balance 1630 -100 0 Weight 94.1 kg Intake: IV 1850 Output: Drainage 20 100 0 Right Upper Abdomen 20 100 0 Estimated Blood Loss 200 Other: Voiding Method Toilet Toilet Urinal Urinal # Voids 1 - Exam PHYSICAL EXAMINATION: GENERAL: The patient is alert and oriented x3, not in any acute distress. Well developed, well nourished. HEENT: Pupils are round and equally reacting to light. EOMI. No scleral icterus. No conjunctival pallor. Normocephalic, atraumatic. No pharyngeal erythema. No thyromegaly. CARDIOVASCULAR: S1 and S2 present. No murmurs, rubs, or gallops. PULMONARY: Chest is clear to auscultation, no wheezing or crackles. ABDOMEN: Soft, nontender, nondistended, normoactive bowel sounds. No palpable organomegaly. MUSCULOSKELETAL: No joint swelling or deformity. EXTREMITIES: No cyanosis, clubbing, or pedal edema. NEUROLOGICAL: Gross neurological examination did not reveal any focal deficits. SKIN: No rashes. - Labs CBC & Chem 7: 06/16/20 06:15 06/16/20 06:15 Labs: Abnormal Lab Results - Last 24 Hours (Table) 06/15/20 06/15/20 06/16/20 Range/Units 16:21 20:48 06:15 WBC 19.0 H (3.8-10.6) k/uL Neutrophils # 15.5 H (1.3-7.7) k/uL Monocytes # 1.5 H (0-1.0) k/uL Glucose (70-110) mg/dL POC Glucose (mg/dL) 176 H 192 H (75-99) mg/dL Total Bilirubin (0.2-1.2) mg/dL AST (14-35) U/L ALT (10-49) U/L 06/16/20 06/16/20 06/16/20 Range/Units 06:15 07:03 11:17 WBC (3.8-10.6) k/uL Neutrophils # (1.3-7.7) k/uL Monocytes # (0-1.0) k/uL Glucose 141 H (70-110) mg/dL POC Glucose (mg/dL) 148 H 133 H (75-99) mg/dL Total Bilirubin 2.1 H (0.2-1.2) mg/dL AST 131 H (14-35) U/L ALT 163 H (10-49) U/L Assessment and Plan Assessment: 1. Cholelithiasis; status post open cholecystectomy 2. Hyperglycemia/diabetes mellitus; patient takes metformin and Giardia and sent home; we will hold off on oral hypoglycemic agents and monitor Accu-Cheks every before meals and at bedtime with insulin sliding scale 3. Hypertension; we will restart on home dose of metoprolol 50 mg 3 times a day along with lisinopril 5 mg daily once oral intake is established 4. Hyperlipidemia; resume Lipitor 40 mg by mouth daily at bedtime DVT prophylaxis; subcu Lovenox CODE STATUS; full code
[2020-06-16] MEDS: ACETAMINOPHEN TAB 500 MG TAB PO SCH ×2 (18:31→23:56)
[2020-06-16 20:39] LABS: Glucose,Whole Blood 132 mg/dL (75-99)
[2020-06-17] MEDS: LACTATED RINGERS 1,000 ML IV SCH (05:12)
[2020-06-17] MEDS: KETOROLAC 15 MG/ML 1 ML VIAL IVP SCH ×4 (06:04→23:08)
[2020-06-17] MEDS: ACETAMINOPHEN TAB 500 MG TAB PO SCH ×4 (06:05→23:07)
[2020-06-17 06:29] LABS: Basophils % (A) 0 %; Eosinophils # (A) 0.1 k/uL (0-0.7); Eosinophils % (A) 0 %; HCT 41.2 % (39.0-53.0); HGB 13.6 gm/dL (13.0-17.5); Lymphocytes # (A) 1.7 k/uL (1.0-4.8); Lymphocytes % (A) 16 %; MCH 29.3 pg (25.0-35.0); MCHC 33.1 g/dL (31.0-37.0); MCV 88.5 fL (80.0-100.0); Mean Platelet Volume 7.4; Monocytes # (A) 0.9 k/uL (0-1.0); Monocytes % (A) 9 %; Neutrophils # (A) 7.9 k/uL (1.3-7.7); Neutrophils % (A) 73 %; Platelet Count 159 k/uL (150-450); RBC 4.65 m/uL (4.30-5.90); RDW 14.3 % (11.5-15.5); WBC 10.8 k/uL (3.8-10.6)
[2020-06-17 07:23] LABS: Glucose,Whole Blood 163 mg/dL (75-99)
[2020-06-17] MEDS: INSULIN ASPART (NovoLOG) 100 UNIT/ML VIAL SQ SCH ×4 (08:14→21:03)
[2020-06-17] MEDS: ATORVASTATIN 40 MG TAB PO SCH (08:15)
[2020-06-17] MEDS: METOPROLOL TARTRATE 50 MG TAB PO SCH ×3 (08:15→21:03)
[2020-06-17] MEDS: lisinopriL 5 MG TAB PO SCH (08:15)
[2020-06-17] MEDS: FAMOTIDINE 20 MG TAB PO SCH (08:15)
[2020-06-17] MEDS: ENOXAPARIN 40 MG/0.4 ML SYRINGE SQ SCH (08:15)
[2020-06-17] MEDS: PIPERACILLIN-TAZOBACTAM 3.375 GM in SODIUM CHLORIDE 0.9% 100 ML IVPB SCH ×2 (08:16→17:48)
[2020-06-17 10:07] LABS: African American GFR (CKD) 96.4 (60.0-200.0); Albumin 3.6 g/dL (3.80-4.90); Albumin/Globulin Ratio 2.4 (1.60-3.17); Anion Gap 8.8 mmol/L (4.00-12.00); Calcium 8.5 mg/dL (8.7-10.3); Carbon Dioxide 23.2 mmol/L (21.6-31.8); Globulin 1.5 g/dL (1.6-3.3); Non-African American GFR(CKD) 83.2 (60.0-200.0); Total Bilirubin 1.7 mg/dL (0.2-1.2); Total Protein 5.1 g/dL (6.2-8.2)
[2020-06-17 11:39] LABS: Glucose,Whole Blood 124 mg/dL (75-99)
--- NOTE | 2020-06-17 12:55 | P.PN ---
Subjective Progress Note Date: 06/17/20 Principal diagnosis: He reports much better pain control. No bowel movements. No reports of nausea or vomiting. He is tolerating diet. He is ambulating in hallway. ABDOMEN: Dressing NAIMA site clean, dry and intact. No bile in NAIMA and is serosanguinous. Silver dressing with minimal shadowing. LABS: WBC improved from 16 to 10.6 PLAN: 1. Continue IV antibiotics 2. Continue NAIMA drain. 3. Continue current pain management. Objective - Vital Signs Vital signs: Vital Signs Temp 98.0 F 06/17/20 07:00 Pulse 75 06/17/20 07:00 Resp 18 06/17/20 07:00 BP 105/66 06/17/20 07:00 Pulse Ox 96 06/17/20 07:28 Intake & Output 06/16/20 06/17/20 06/17/20 18:59 06:59 18:59 Intake Total 300 Output Total 410 20 Balance -410 300 -20 Intake: Oral 300 Output: Drainage 10 20 Right Upper Abdomen 10 20 Urine 400 Other: Voiding Method Toilet Toilet Toilet Urinal Urinal # Voids 1 - Labs CBC & Chem 7: 06/17/20 05:46 06/17/20 05:46 Labs: Abnormal Lab Results - Last 24 Hours (Table) 06/16/20 06/16/20 06/17/20 Range/Units 16:38 20:20 05:46 WBC 10.8 H (3.8-10.6) k/uL Neutrophils # 7.9 H (1.3-7.7) k/uL Sodium (135-145) mmol/L BUN/Creatinine Ratio (12.00-20.00) Ratio POC Glucose (mg/dL) 136 H 132 H (75-99) mg/dL Calcium (8.7-10.3) mg/dL Total Bilirubin (0.2-1.2) mg/dL AST (14-35) U/L ALT (10-49) U/L Total Protein (6.2-8.2) g/dL Albumin (3.80-4.90) g/dL Globulin (1.6-3.3) g/dL 06/17/20 06/17/20 06/17/20 Range/Units 05:46 07:08 11:38 WBC (3.8-10.6) k/uL Neutrophils # (1.3-7.7) k/uL Sodium 134 L (135-145) mmol/L BUN/Creatinine Ratio 26.00 H (12.00-20.00) Ratio POC Glucose (mg/dL) 163 H 124 H (75-99) mg/dL Calcium 8.5 L (8.7-10.3) mg/dL Total Bilirubin 1.7 H (0.2-1.2) mg/dL AST 91 H (14-35) U/L ALT 110 H (10-49) U/L Total Protein 5.1 L (6.2-8.2) g/dL Albumin 3.60 L (3.80-4.90) g/dL Globulin 1.5 L (1.6-3.3) g/dL
--- NOTE | 2020-06-17 14:51 | P.PN ---
Subjective Progress Note Date: 06/17/20 Principal diagnosis: Acute cholecystitis; status post open cholecystectomy 55-year-old male with history of hypertension, hyperlipidemia, diabetes mellitus and [place] who presented to the emergency room with complaint of right upper quadrant pain. Patient had a recent ultrasound showed evidence of cholelithiasis. He presents today for laparoscopic cholecystectomy. Patient underwent open cholecystectomy; he is POD #1; reports no significant complaints; Labs are reviewed revealing a white blood count of 19,000; surgery is on board; recommend starting patient on IV Zosyn and continued monitoring of CBC 06/17/2020 Patient is seen and evaluated in room at bedside; has been ambulating in the hallway; reports improved pain control; has been passing flatus but no bowel movement; patient remains afebrile with a temperature of 98.0 and white blood count is markedly improved; patient remains on IV Zosyn; surgery is recommending to continue IV antibiotics and NAIMA drain; continue current pain management Objective - Vital Signs Vital signs: Vital Signs Temp 98.0 F 06/17/20 07:00 Pulse 75 06/17/20 07:00 Resp 18 06/17/20 07:00 BP 105/66 06/17/20 07:00 Pulse Ox 96 06/17/20 07:28 Intake & Output 06/16/20 06/17/20 06/17/20 18:59 06:59 18:59 Intake Total 300 Output Total 410 20 Balance -410 300 -20 Intake: Oral 300 Output: Drainage 10 20 Right Upper Abdomen 10 20 Urine 400 Other: Voiding Method Toilet Toilet Toilet Urinal Urinal # Voids 1 - Exam PHYSICAL EXAMINATION: GENERAL: The patient is alert and oriented x3, not in any acute distress. Well developed, well nourished. HEENT: Pupils are round and equally reacting to light. EOMI. No scleral icterus. No conjunctival pallor. Normocephalic, atraumatic. No pharyngeal erythema. No thyromegaly. CARDIOVASCULAR: S1 and S2 present. No murmurs, rubs, or gallops. PULMONARY: Chest is clear to auscultation, no wheezing or crackles. ABDOMEN: Soft, nontender, nondistended, normoactive bowel sounds. No palpable organomegaly. MUSCULOSKELETAL: No joint swelling or deformity. EXTREMITIES: No cyanosis, clubbing, or pedal edema. NEUROLOGICAL: Gross neurological examination did not reveal any focal deficits. SKIN: No rashes. - Labs CBC & Chem 7: 06/17/20 05:46 06/17/20 05:46 Labs: Abnormal Lab Results - Last 24 Hours (Table) 06/16/20 06/16/20 06/16/20 Range/Units 11:17 16:38 20:20 WBC (3.8-10.6) k/uL Neutrophils # (1.3-7.7) k/uL Sodium (135-145) mmol/L BUN/Creatinine Ratio (12.00-20.00) Ratio POC Glucose (mg/dL) 133 H 136 H 132 H (75-99) mg/dL Calcium (8.7-10.3) mg/dL Total Bilirubin (0.2-1.2) mg/dL AST (14-35) U/L ALT (10-49) U/L Total Protein (6.2-8.2) g/dL Albumin (3.80-4.90) g/dL Globulin (1.6-3.3) g/dL 06/17/20 06/17/20 06/17/20 Range/Units 05:46 05:46 07:08 WBC 10.8 H (3.8-10.6) k/uL Neutrophils # 7.9 H (1.3-7.7) k/uL Sodium 134 L (135-145) mmol/L BUN/Creatinine Ratio 26.00 H (12.00-20.00) Ratio POC Glucose (mg/dL) 163 H (75-99) mg/dL Calcium 8.5 L (8.7-10.3) mg/dL Total Bilirubin 1.7 H (0.2-1.2) mg/dL AST 91 H (14-35) U/L ALT 110 H (10-49) U/L Total Protein 5.1 L (6.2-8.2) g/dL Albumin 3.60 L (3.80-4.90) g/dL Globulin 1.5 L (1.6-3.3) g/dL Assessment and Plan Assessment: 1. Cholelithiasis; status post open cholecystectomy 2. Hyperglycemia/diabetes mellitus; patient takes metformin and Giardia and sent home; we will hold off on oral hypoglycemic agents and monitor Accu-Cheks every before meals and at bedtime with insulin sliding scale 3. Hypertension; we will restart on home dose of metoprolol 50 mg 3 times a day along with lisinopril 5 mg daily once oral intake is established 4. Hyperlipidemia; resume Lipitor 40 mg by mouth daily at bedtime DVT prophylaxis; subcu Lovenox CODE STATUS; full code
[2020-06-17 16:54] LABS: Glucose,Whole Blood 104 mg/dL (75-99)
[2020-06-17 20:49] LABS: Glucose,Whole Blood 135 mg/dL (75-99)
[2020-06-18] MEDS: PIPERACILLIN-TAZOBACTAM 3.375 GM in SODIUM CHLORIDE 0.9% 100 ML IVPB SCH ×2 (00:11→07:43)
[2020-06-18 01:25] VITALS: TEMP 97.8
[2020-06-18] MEDS: LACTATED RINGERS 1,000 ML IV SCH (04:25)
[2020-06-18] MEDS: ACETAMINOPHEN TAB 500 MG TAB PO SCH ×3 (05:22→14:24)
[2020-06-18] MEDS: KETOROLAC 15 MG/ML 1 ML VIAL IVP SCH ×3 (05:23→14:24)
[2020-06-18 06:09] LABS: Basophils % (A) 0 %; Eosinophils # (A) 0.1 k/uL (0-0.7); Eosinophils % (A) 1 %; HCT 39.5 % (39.0-53.0); HGB 12.8 gm/dL (13.0-17.5); Lymphocytes # (A) 1.8 k/uL (1.0-4.8); Lymphocytes % (A) 27 %; MCH 27.9 pg (25.0-35.0); MCHC 32.4 g/dL (31.0-37.0); MCV 86.1 fL (80.0-100.0); Mean Platelet Volume 7.2; Monocytes # (A) 0.5 k/uL (0-1.0); Monocytes % (A) 7 %; Neutrophils # (A) 4.1 k/uL (1.3-7.7); Neutrophils % (A) 63 %; Platelet Count 171 k/uL (150-450); RBC 4.58 m/uL (4.30-5.90); RDW 13.9 % (11.5-15.5); WBC 6.6 k/uL (3.8-10.6)
[2020-06-18 06:56] LABS: Glucose,Whole Blood 118 mg/dL (75-99)
[2020-06-18] MEDS: INSULIN ASPART (NovoLOG) 100 UNIT/ML VIAL SQ SCH ×2 (07:31→12:16)
[2020-06-18] MEDS: ATORVASTATIN 40 MG TAB PO SCH (07:43)
[2020-06-18] MEDS: METOPROLOL TARTRATE 50 MG TAB PO SCH (07:43)
[2020-06-18] MEDS: FAMOTIDINE 20 MG TAB PO SCH (07:43)
[2020-06-18] MEDS: ENOXAPARIN 40 MG/0.4 ML SYRINGE SQ SCH (07:43)
[2020-06-18] MEDS: lisinopriL 5 MG TAB PO SCH (07:43)
[2020-06-18 07:51] VITALS: BP 147/80; PULSE 67; RESP 18
[2020-06-18 10:09] LABS: African American GFR (CKD) 109.5 (60.0-200.0); Albumin 3.5 g/dL (3.80-4.90); Albumin/Globulin Ratio 2.33 (1.60-3.17); Anion Gap 7.6 mmol/L (4.00-12.00); BUN/Creat Ratio 21.11 Ratio (12.00-20.00); Calcium 8.4 mg/dL (8.7-10.3); Carbon Dioxide 24.4 mmol/L (21.6-31.8); Globulin 1.5 g/dL (1.6-3.3); Non-African American GFR(CKD) 94.5 (60.0-200.0); Potassium 3.7 mmol/L (3.5-5.5)
[2020-06-18 11:35] LABS: Glucose,Whole Blood 165 mg/dL (75-99)
--- NOTE | 2020-06-18 14:48 | P.DS ---
Providers Date of admission: 06/15/20 09:50 Expected date of discharge: 06/18/20 Attending physician: Jerrell Medrano Consults: 06/15/20 09:57 Consult Physician Routine Consulting Provider: Jo Ross Consult Reason/Comments: Medical management Do you want consulting provider notified?: Yes Primary care physician: Lianne Hendricks [facility] Course: Discharge diagnosis 1. Cholestasis and cholelithiasis status post diagnostic laparoscopy and open cholecystectomy Hospital course This a 55-year-old male who presented to the emergency room with complaint of right upper quadrant pain. Patient had a recent ultrasound showed evidence of cholelithiasis. He is status post diagnostic laparoscopy and open cholecystectomy. Patient tolerated surgery well. He is tolerating diet. He has had a bowel movement. He is up and ambulating. He is afebrile. He is stable for discharge. Physician Visual Merchandise Manager note has been reviewed by physician. Signing provider agrees with the documented findings, assessment, and plan of care. Patient Condition at Discharge: Stable Plan - Discharge Summary Discharge Rx Participant: Yes New Discharge Prescriptions: New traMADol HCl [Ultram] 50 mg PO Q6H PRN #12 tab PRN Reason: Mild To Moderate Pain Continue diphenhydrAMINE [Benadryl] 50 mg PO DAILY PRN PRN Reason: ALLERGIES lisinopriL [Zestril] 5 mg PO DAILY Metoprolol Tartrate [Lopressor] 50 mg PO TID Famotidine [Pepcid] 20 mg PO DAILY Atorvastatin [Lipitor] 40 mg PO DAILY Aspirin EC [Ecotrin Low Dose] 81 mg PO DAILY metFORMIN HCL [Glucophage Xr] 500 mg PO BID Tadalafil [Cialis] 10 mg PO DAILY PRN PRN Reason: E.D. Krill Oil 500 mg PO DAILY Empagliflozin [Jardiance] 25 mg PO DAILY Discharge Medication List Aspirin EC [Ecotrin Low Dose] 81 mg PO DAILY 06/13/20 [History] Atorvastatin [Lipitor] 40 mg PO DAILY 06/13/20 [History] Empagliflozin [Jardiance] 25 mg PO DAILY 06/13/20 [History] Famotidine [Pepcid] 20 mg PO DAILY 06/13/20 [History] Krill Oil 500 mg PO DAILY 06/13/20 [History] Metoprolol Tartrate [Lopressor] 50 mg PO TID 06/13/20 [History] Tadalafil [Cialis] 10 mg PO DAILY PRN 06/13/20 [History] diphenhydrAMINE [Benadryl] 50 mg PO DAILY PRN 06/13/20 [History] lisinopriL [Zestril] 5 mg PO DAILY 06/13/20 [History] metFORMIN HCL [Glucophage Xr] 500 mg PO BID 06/13/20 [History] traMADol HCl [Ultram] 50 mg PO Q6H PRN #12 tab 06/18/20 [Rx] Follow up Appointment(s)/Referral(s): Jerrell Medrano MD [STAFF PHYSICIAN] - 1 Week Activity/Diet/Wound Care/Special Instructions: No driving while taking ultram No lifting over 10 pounds You may shower. No soaking or tub baths for 2 weeks Very light activity until you are reevaluated at your follow up appointment with your surgeon Keep drain in place. Drain to be removed at follow-up appointment was surgeon Diet: Low-fat Discharge Disposition: HOME SELF-CARE
[2020-06-18 19:54] LABS: Hemoglobin A1C 6.4 % (4.0-6.0)
--- NOTE | 2020-06-20 02:43 | CDI ---
Documentation Clarification Form Date: 06/20/2020 From: Attila Nolasco Phone: If you have a question about this query, please contact [employer] Preforming Machine Operator at [phone] between 8am and 5pm. Admit Date: 06/15/2020 Discharge Date: 06/18/2020 Patient Name: Sudheer Martin Visit Number: [id number] ATTENTION: The Clinical Documentation Specialists (CDI) and [facility] Coding Staff appreciate your assistance in clarifying documentation. Please respond to the clarification below the line at the bottom and electronically sign. The CDI & [facility] Coding staff will review the response and follow-up if needed. Please note: Queries are made part of the Legal Health Record. If you have any questions, please contact the author of this message via ITS. Dear Jerrell Guillen MD., Sodium levels Observed from 135, 134. History/Risk Factors: Hyperlipidemia, Cholelithiasis, cholecystectomy Clinical indicators: Low sodium levels Abnormal : Sodium level at low 134L Treatment: Sodium Chloride 50ml , Sodium chloride 100ml along with IV abx. Clinical significance of diagnostic testing and treatment CANNOT be assumed or coded without physician documentation of significance if any. Please clarify what abnormal laboratory signifies: Hyponatremia Abnormal Lab Value Unable to determine Other, please specify Unable to determine MTDD
== END 2020-06-18 15:45 | disposition home or self-care (01) | DRG 416 ==
LOC: OR 07:09 → 4SSUR 09:50
PROVIDERS: ADMIT Surgery; ATTEND Surgery
PROC: 0FT40ZZ Resection of Gallbladder, Open Approach (ICD-10-PCS; principal; 2020-06-15 08:30)
PROC: 0FJ44ZZ Inspection of Gallbladder, Percutaneous Endoscopic Approach (ICD-10-PCS; principal; 2020-06-15 08:30)
DX: K80.67 Calculus of gallbladder and bile duct with acute and chronic cholecystitis with obstruction (principal); I10 Essential (primary) hypertension; E78.5 Hyperlipidemia, unspecified; E11.65 Type 2 diabetes mellitus with hyperglycemia; I25.2 Old myocardial infarction; Z79.82 Long term (current) use of aspirin; Z79.84 Long term (current) use of oral hypoglycemic drugs; Z79.899 Other long term (current) drug therapy; Z95.1 Presence of aortocoronary bypass graft; Z95.5 Presence of coronary angioplasty implant and graft; Z90.89 Acquired absence of other organs; Z80.9 Family history of malignant neoplasm, unspecified; Z53.31 Laparoscopic surgical procedure converted to open procedure
CPT/HCPCS: 80053; 83036; 85025; 88304; 94760